=== PATIENT | female | born 1985 | race Two or more races ===

== ENCOUNTER 2025-07-09 11:00 | Emergency (ER) | payer OTHER ==
[~2025-07-09] VITALS: Ht 170.2 cm; Wt 63.5 kg
[2025-07-09] MEDS ORDERED: PRENATE ELITE1 EAC2 (11:40)
[2025-07-09] MEDS ORDERED: GUAIFENESIN 200 MG/10 ML BLIST.PACK PO ONE (12:00)
[2025-07-09] MEDS ORDERED: ACETAMINOPHEN 500 MG GEL..CAP PO ONE (12:00)
[2025-07-09 12:22] LABS: BASO % 0.2 % (0.1-1.2); EOS # 0.02 (0.04-0.54); EOS % 0.1 % (0.7-7.0); LYMPH # 1.16 (1.18-3.74); LYMPH % 6.4 % (19.3-53.1); MEAN PLATELET VOLUME 8.40 fl (9.4-12.4); MONO # 0.87 (0.24-0.82); MONO % 4.8 % (4.7-12.5); NEUT # 15.97 (1.56-6.13); NEUT % 88.1 % (34.0-71.1); RED CELL DISTRIBUTION WIDTH 13.6 % (11.6-14.4)
[2025-07-09 13:17] LABS: URINE APPEARANCE Clear; URINE BILIRRUBIN Small (NEGATIVE); URINE BLOOD Small; URINE COLOR Dark Yellow; URINE GLUCOSE Negative (NEGATIVE); URINE KETONE Trace (NEGATIVE); URINE LEUKOCYTE Trace; URINE NITRATE Negative; URINE PROTEIN Trace (NEGATIVE); URINE UROBILINOGEN 1.0 E.U./dl
[2025-07-09 13:24] LABS: URINE BACTERIA 569.9 uL (0.0-1933); URINE EPITHELIAL CELLS 39.8 uL (0.0-38.8); URINE RBC 51.0 uL (0.0-20.8); URINE WBC 6.6 uL (0.0-23.2)
[2025-07-09 13:37] LABS: COVID-19 AG NEGATIVE (NEGATIVE)
[2025-07-09 13:56] LABS: URINE CAST 0.29 uL (0.0-1.40)
[2025-07-09] MEDS ORDERED: CEFAZOLIN SODIUM 1,000 MG VIAL IV ONE (14:30)
== END 2025-07-09 14:53 | disposition home or self-care (01) ==
LOC: ER 11:00
PROVIDERS: General Practice
DX: Z33.1 Pregnant state, incidental (principal); Z3A.18 18 weeks gestation of pregnancy; J02.8 Acute pharyngitis due to other specified organisms; B96.89 Other specified bacterial agents as the cause of diseases classified elsewhere; R05.9 Cough, unspecified; Z20.822 Contact with and (suspected) exposure to COVID-19; Z88.6 Allergy status to analgesic agent